=== PATIENT | male | born 1995 | race African-American/Black ===

== ENCOUNTER 2021-10-23 02:56 | Emergency (ER) | payer SELFPAY ==
[~2021-10-23] VITALS: Ht 185.4 cm; Wt 75.0 kg
[2021-10-23 03:07] VITALS: BP 113/69
== END 2021-10-23 07:26 | disposition left against medical advice (07) ==
LOC: ER 02:56
DX: R68.84 Jaw pain (principal); Y04.0XXA Assault by unarmed brawl or fight, initial encounter; Y93.89 Activity, other specified; Y92.89 Other specified places as the place of occurrence of the external cause
CPT/HCPCS: 99281